=== PATIENT | female | born 1930 | race African-American/Black ===

== ENCOUNTER 2018-11-05 10:46 | Observation (INO) ==
[2018-11-05] MEDS ORDERED: ACETAMINOPHEN 325 MG TABLET PO PRN (15:52)
[2018-11-05] MEDS ORDERED: ONDANSETRON 4 MG/2 ML VIAL IV PRN (15:52)
[2018-11-05] MEDS ORDERED: traMADol 50 MG TABLET PO PRN (16:00)
[2018-11-05] MEDS ORDERED: MAGNESIUM HYDROXIDE SUSP 30 ML UDCUP PO PRN (16:00)
[2018-11-05] MEDS ORDERED: TUBERCULIN SKIN TEST 0.1 ML SYRINGE INTRADERM ONE (16:12)
[2018-11-05 16:59] LABS: Basophils % 0.6 % (0.0-0.8); Eosinophils # 0.1 10*3/uL (0.0-0.87); Eosinophils % 1.6 % (0.00-10.9); Hematocrit 38.9 VOL% (35.7-47.0); Hemoglobin 12.2 GM/DL (12.0-16.0); Immature Granulocytes % 0.3 %; Immature Granulocytes Absolute 0.02 #; Lymphocytes # 1.9 10*3/uL (1.4-4.0); Lymphocytes % 27.8 % (21.3-54.2); Mean Corpuscular HGB Conc 31.4 GM/DL (32-36); Mean Corpuscular Volume 98.7 FL (87-102); Mean Platelet Volume 10.4 FL (9.6-12.0); Monocytes % 10.5 % (1.7-12.7); Neutrophils % 59.2 % (38.7-73.9); Platelet Count 243 T/CUMM (130-400); Red Blood Count 3.94 MC/CUMM (3.8-5.5); Red Cell Distribution Width 13.8 % (9.3-17.3); White Blood Count 6.7 T/CUMM (4-12)
[2018-11-05 17:27] LABS: Albumin 3.5 G/DL (3.4-5.0); Bilirubin,Total 0.6 MG/DL (0.2-1.0); Calcium 9.5 MG/DL (8.5-10.1); Osmolality,Calculated 289.7 MOS/KG (273-304); Total Protein 8.2 G/DL (6.4-8.3)
[2018-11-05] MEDS: DICLOFENAC 1% GEL 100 GM TUBE TOP SCH ×2 (18:36→21:33)
[2018-11-05] MEDS: SODIUM CHLORIDE 0.9% 1,000 ML IV SCH (18:42)
[2018-11-05] MEDS ORDERED: POTASSIUM CHLORIDE 20 MEQ TABLET PO ONE (20:48)
[2018-11-05] MEDS: FAMOTIDINE 20 MG TABLET PO SCH (21:25)
[2018-11-05] MEDS: DOCUSATE SODIUM 100 MG CAPSULE PO SCH (21:25)
[2018-11-05] MEDS: ENOXAPARIN 40 MG/0.4 ML SYRINGE SUBCUT SCH (21:25)
[2018-11-05] MEDS: DOXAZOSIN 1 MG TABLET PO SCH (21:32)
[2018-11-06 04:53] LABS: Calcium 8.8 MG/DL (8.5-10.1); Osmolality,Calculated 290.6 MOS/KG (273-304)
[2018-11-06] MEDS: SODIUM CHLORIDE 0.9% 1,000 ML IV SCH (05:40)
[2018-11-06 06:12] LABS: Apearance,Urine CLEAR (Clear); Bilirubin,Urine Negative (Negative); Blood, Urine Small mg/dL (Negative); Glucose,Urine (UA) Negative (Negative); Ketones,Urine Negative (Negative); Mucus,Urine Occasional /LPF (Occasional); Nitrite,Urine Negative (Negative); Protein,Urine Negative; RBC,Urine 2 /HPF (0-4); Squamous Epithelial Cell,Urine Occasional /HPF (0-10); Urine Color Straw (Yellow); Urine Specific Gravity 1.011 (1.001-1.035); Urine Urobilinogen < 2.0 EU/DL (0.2-1.0); WBC,Urine <1 /HPF (0-6)
[2018-11-06] MEDS: hydroCHLOROthiazide 12.5 MG CAPSULE PO SCH (10:08)
[2018-11-06] MEDS: FAMOTIDINE 20 MG TABLET PO SCH ×2 (10:08→22:09)
[2018-11-06] MEDS: POTASSIUM CHLORIDE 20 MEQ TABLET PO SCH ×2 (10:09→22:09)
[2018-11-06] MEDS: DOCUSATE SODIUM 100 MG CAPSULE PO SCH ×2 (10:09→22:10)
[2018-11-06] MEDS: DICLOFENAC 1% GEL 100 GM TUBE TOP SCH ×4 (10:10→22:10)
[2018-11-06] MEDS: DOXAZOSIN 1 MG TABLET PO SCH (22:09)
[2018-11-06] MEDS: ENOXAPARIN 40 MG/0.4 ML SYRINGE SUBCUT SCH (22:09)
[2018-11-07 04:51] LABS: Calcium 8.4 MG/DL (8.5-10.1); Osmolality,Calculated 286.8 MOS/KG (273-304)
[2018-11-07] MEDS: hydroCHLOROthiazide 12.5 MG CAPSULE PO SCH (09:13)
[2018-11-07] MEDS: DOCUSATE SODIUM 100 MG CAPSULE PO SCH ×2 (09:14→21:04)
[2018-11-07] MEDS: FAMOTIDINE 20 MG TABLET PO SCH ×2 (09:14→21:04)
[2018-11-07] MEDS: POTASSIUM CHLORIDE 20 MEQ TABLET PO SCH ×2 (09:14→21:03)
[2018-11-07] MEDS: DICLOFENAC 1% GEL 100 GM TUBE TOP SCH ×3 (09:16→16:55)
[2018-11-07] MEDS: DOXAZOSIN 1 MG TABLET PO SCH (21:04)
[2018-11-07] MEDS: ENOXAPARIN 40 MG/0.4 ML SYRINGE SUBCUT SCH (21:05)
[2018-11-07] MEDS ORDERED: QUEtiapine 25 MG TABLET PO SCH (22:00)
[2018-11-08] MEDS: DICLOFENAC 1% GEL 100 GM TUBE TOP SCH ×2 (05:19→10:04)
[2018-11-08 09:26] VITALS: BP 144/67
[2018-11-08] MEDS: DOCUSATE SODIUM 100 MG CAPSULE PO SCH (10:03)
[2018-11-08] MEDS: POTASSIUM CHLORIDE 20 MEQ TABLET PO SCH (10:03)
[2018-11-08] MEDS: hydroCHLOROthiazide 12.5 MG CAPSULE PO SCH (10:03)
[2018-11-08] MEDS: FAMOTIDINE 20 MG TABLET PO SCH (10:03)
== END 2018-11-08 11:07 ==
LOC: N.4E 15:44 → INTOOBSV 15:44
PROVIDERS: ADMIT Internal Medicine; ATTEND Internal Medicine

== ENCOUNTER 2021-01-18 10:03 | Inpatient (IN) ==
[2021-01-18 11:05] LABS: Basophils % 0.2 % (0.0-0.8); Eosinophils # 0.1 10*3/uL (0.0-0.87); Eosinophils % 2.3 % (0.00-10.9); Hematocrit 38.8 VOL% (35.7-47.0); Hemoglobin 11.7 GM/DL (12.0-16.0); Immature Granulocytes % 0.3 %; Immature Granulocytes Absolute 0.02 #; Lymphocytes # 1.1 10*3/uL (1.4-4.0); Lymphocytes % 18.3 % (21.3-54.2); Mean Corpuscular HGB Conc 30.2 GM/DL (32-36); Mean Corpuscular Volume 100.8 FL (87-102); Mean Platelet Volume 11.4 FL (9.6-12.0); Neutrophils % 69.9 % (38.7-73.9); Platelet Count 220 T/CUMM (130-400); Red Blood Count 3.85 MC/CUMM (3.8-5.5); Red Cell Distribution Width 15.7 % (9.3-17.3); White Blood Count 6.2 T/CUMM (4-12)
[2021-01-18 11:29] LABS: Albumin 2.6 G/DL (3.4-5.0); Bilirubin,Total 0.4 MG/DL (0.20-1.00); Calcium 9.7 MG/DL (8.5-10.1); Osmolality,Calculated 298.6 MOS/KG (273-304); Potassium 3.9 MMOL/L (3.5-5.1); Total Protein 7.8 G/DL (6.4-8.2)
[2021-01-18] MEDS ORDERED: SODIUM CHLORIDE 0.9% 1,000 ML IV STA (11:33)
[2021-01-18] MEDS ORDERED: VANCOMYCIN INJ 1,000 MG in SODIUM CHLORIDE 0.9% 250 ML IV STA (11:36)
[2021-01-18 11:38] LABS: Amorphous Crystals,Urine Occasional /HPF (Few); Bacteria,Urine Moderate /HPF (Few); Bilirubin,Urine Negative (Negative); Blood, Urine Small mg/dL (Negative); Glucose,Urine (UA) Negative (Negative); Ketones,Urine Negative (Negative); Nitrite,Urine Positive (Negative); Protein,Urine Negative; RBC,Urine 5 /HPF (0-4); Squamous Epithelial Cell,Urine Many /HPF (0-10); Urine Appearance CLOUDY (Clear); Urine Color Yellow (Yellow); Urine Specific Gravity 1.008 (1.001-1.035); Urine Urobilinogen < 2.0 EU/DL (<2.0)
[2021-01-18] MEDS ORDERED: MORPHINE 2 MG/1 ML SYRINGE IV PRN (12:09)
[2021-01-18] MEDS ORDERED: GLUCAGON 1 MG VIAL IM PRN (12:09)
[2021-01-18] MEDS ORDERED: ACETAMINOPHEN 325 MG TABLET PO PRN (12:09)
[2021-01-18] MEDS ORDERED: ONDANSETRON 4 MG/2 ML VIAL IV PRN (12:09)
[2021-01-18] MEDS ORDERED: DEXTROSE 50% 25 GM/50 ML SYRINGE IV PRN (12:13)
[2021-01-18] MEDS ORDERED: POLYETHYLENE GLYCOL POWDER 17 GM PACK PO PRN (12:18)
[2021-01-18] MEDS ORDERED: SODIUM CHLORIDE 0.9% 1,000 ML IV SCH (12:30)
[2021-01-18] MEDS: LACTATED RINGERS 1,000 ML IV SCH (15:20)
[2021-01-18] MEDS: CEFEPIME 1,000 MG in SODIUM CHLORIDE 0.9% 100 ML IV SCH ×2 (15:20→21:43)
[2021-01-18] MEDS: INSULIN LISPRO 100 UNIT/ML SUBCUT SCH ×2 (18:05→21:39)
[2021-01-18] MEDS: DOCUSATE SODIUM 100 MG CAPSULE PO SCH (21:32)
[2021-01-18] MEDS: ATORVASTATIN 10 MG TABLET PO SCH (21:32)
[2021-01-18] MEDS: MELATONIN 3 MG TABLET PO SCH (21:32)
[2021-01-18] MEDS: MEMANTINE 10 MG TABLET PO SCH (21:33)
[2021-01-18] MEDS: NYSTATIN POWDER 15 GM BOTTLE TOP SCH (21:43)
[2021-01-18] MEDS: MIRTAZAPINE 15 MG TABLET PO SCH (21:43)
[2021-01-19] MEDS: CEFEPIME 1,000 MG in SODIUM CHLORIDE 0.9% 100 ML IV SCH ×3 (04:45→20:23)
[2021-01-19 06:19] LABS: Basophils % 0.2 % (0.0-0.8); Eosinophils # 0.1 10*3/uL (0.0-0.87); Eosinophils % 2.2 % (0.00-10.9); Hematocrit 36.3 VOL% (35.7-47.0); Hemoglobin 10.8 GM/DL (12.0-16.0); Immature Granulocytes % 0.3 %; Immature Granulocytes Absolute 0.02 #; Lymphocytes % 16.2 % (21.3-54.2); Mean Corpuscular HGB Conc 29.8 GM/DL (32-36); Mean Corpuscular Volume 102.8 FL (87-102); Mean Platelet Volume 11.3 FL (9.6-12.0); Monocytes % 10.1 % (1.7-12.7); Platelet Count 225 T/CUMM (130-400); Red Blood Count 3.53 MC/CUMM (3.8-5.5); Red Cell Distribution Width 15.5 % (9.3-17.3); White Blood Count 6.4 T/CUMM (4-12)
[2021-01-19 06:20] LABS: PT Patient Result 11.5 SECS (10.5-12.0)
[2021-01-19 06:33] LABS: Calcium 9.4 MG/DL (8.5-10.1); Osmolality,Calculated 297.4 MOS/KG (273-304); Potassium 3.5 MMOL/L (3.5-5.1)
[2021-01-19] MEDS: INSULIN LISPRO 100 UNIT/ML SUBCUT SCH ×4 (07:14→20:25)
[2021-01-19] MEDS: LACTATED RINGERS 1,000 ML IV SCH ×3 (08:32→17:31)
[2021-01-19] MEDS: MEMANTINE 10 MG TABLET PO SCH ×2 (08:35→20:26)
[2021-01-19] MEDS: DOCUSATE SODIUM 100 MG CAPSULE PO SCH ×2 (08:35→20:26)
[2021-01-19] MEDS: FAMOTIDINE 20 MG TABLET PO SCH (08:35)
[2021-01-19] MEDS: MINERAL OIL/PETROLATUM OPH OINT 3.5 GM TUBE LEFT EYE SCH ×2 (08:36→21:00)
[2021-01-19] MEDS: NYSTATIN POWDER 15 GM BOTTLE TOP SCH ×2 (08:36→21:00)
[2021-01-19] MEDS: MIRTAZAPINE 15 MG TABLET PO SCH (20:26)
[2021-01-19] MEDS: MELATONIN 3 MG TABLET PO SCH (20:26)
[2021-01-19] MEDS: ATORVASTATIN 10 MG TABLET PO SCH (20:26)
[2021-01-19] MEDS: ZINC OXIDE 16% PASTE 57 GM TUBE TOP SCH (21:00)
[2021-01-20] MEDS: LACTATED RINGERS 1,000 ML IV SCH (04:10)
[2021-01-20] MEDS: CEFEPIME 1,000 MG in SODIUM CHLORIDE 0.9% 100 ML IV SCH ×2 (05:56→15:36)
[2021-01-20 06:07] LABS: Calcium 8.9 MG/DL (8.5-10.1); Osmolality,Calculated 296.3 MOS/KG (273-304); Potassium 3.4 MMOL/L (3.5-5.1)
[2021-01-20 06:09] LABS: Basophils % 0.4 % (0.0-0.8); Eosinophils # 0.1 10*3/uL (0.0-0.87); Eosinophils % 2.7 % (0.00-10.9); Hematocrit 34.1 VOL% (35.7-47.0); Hemoglobin 10.3 GM/DL (12.0-16.0); Immature Granulocytes % 0.4 %; Immature Granulocytes Absolute 0.02 #; Lymphocytes # 1.3 10*3/uL (1.4-4.0); Lymphocytes % 25.5 % (21.3-54.2); Mean Corpuscular HGB Conc 30.2 GM/DL (32-36); Mean Corpuscular Volume 102.7 FL (87-102); Monocytes % 10.5 % (1.7-12.7); Neutrophils % 60.5 % (38.7-73.9); Platelet Count 213 T/CUMM (130-400); Red Blood Count 3.32 MC/CUMM (3.8-5.5); Red Cell Distribution Width 15.4 % (9.3-17.3); White Blood Count 5.1 T/CUMM (4-12)
[2021-01-20] MEDS: INSULIN LISPRO 100 UNIT/ML SUBCUT SCH ×2 (08:08→12:17)
[2021-01-20] MEDS ORDERED: MULTIVITAMIN (CENTRUM) TABLET PO SCH (09:00)
[2021-01-20] MEDS: MEMANTINE 10 MG TABLET PO SCH (10:51)
[2021-01-20] MEDS: FAMOTIDINE 20 MG TABLET PO SCH (10:51)
[2021-01-20] MEDS: DOCUSATE SODIUM 100 MG CAPSULE PO SCH (10:51)
[2021-01-20] MEDS ORDERED: POTASSIUM CHLORIDE 20 MEQ TABLET PO ONE (11:30)
[2021-01-20 11:45] VITALS: BP 124/64
[2021-01-20] MEDS: ZINC OXIDE 16% PASTE 57 GM TUBE TOP SCH (12:10)
[2021-01-20] MEDS: NYSTATIN POWDER 15 GM BOTTLE TOP SCH (12:11)
[2021-01-20] MEDS: MINERAL OIL/PETROLATUM OPH OINT 3.5 GM TUBE LEFT EYE SCH (12:11)
== END 2021-01-20 13:33 | DRG 593 ==
LOC: EDBD → EDUNIT# → N.ED 10:03 → N.EDINP 12:09 → SUATTDRO 12:09 → N.EDINP 23:27 → N.5E 01-19 00:46
PROVIDERS: ADMIT Internal Medicine; ATTEND Internal Medicine